=== PATIENT | female | born 2000 | race American Indian/Alaskan Native ===

== ENCOUNTER 2020-08-02 17:45 | Emergency (ER) | payer OTHER ==
[2020-08-02 20:39] VITALS: BP 116/72
== END 2020-08-02 20:41 | disposition home or self-care (01) ==
LOC: ED 17:45
DX: S89.91XA Unspecified injury of right lower leg, initial encounter (principal); Z79.899 Other long term (current) drug therapy; W01.0XXA Fall on same level from slipping, tripping and stumbling without subsequent striking against object, initial encounter; Y93.89 Activity, other specified; Y92.89 Other specified places as the place of occurrence of the external cause; Y99.8 Other external cause status